=== PATIENT | female | born 1980 | race African-American/Black ===

== ENCOUNTER 2016-06-14 07:26 | Inpatient (IN) | payer OTHER ==
[~2016-06-14] VITALS: Ht 165.1 cm; Wt 99.8 kg
[~2016-06-14 07:26] MED LIST: BUTA1CAP29 PO; METH-37 PO
[2016-06-14] MEDS ORDERED: ONDANSETRON PF 4 MG/2 ML VIAL. IV ONE ×2 (07:45→08:00)
[2016-06-14] MEDS ORDERED: ACETAMINOPHEN 325 MG TABLET. PO ONE (07:45)
[2016-06-14] MEDS ORDERED: IV NORMAL SALINE 1000ML BAG 1,000 ML IV ONE ×2 (07:45→08:00)
[2016-06-14] MEDS ORDERED: ONDANSETRON PF 4 MG/2 ML VIAL. IV PRN ×2 (08:00→09:45)
--- NOTE | 2016-06-14 08:01 | PHYS DOC ---
Past Medical History Past Medical History: No Pertinent History Past Surgical History: Tubal ligation Alcohol Use: None Drug Use: None Adult General Chief Complaint Chief Complaint: VOMITING IN HPI HPI Patient is a 36 year old female who presents with nausea and vomiting in . Patient is , at 4 weeks 4 days gestation by dates (LMP 05/13). States she previously had tubal ligation underwent reversal, had positive home test, has been following with primary care physician at [facility] for serial beta hCG. Has had nausea and vomiting for the past week , this morning vomited 3 times, not able to tolerate any oral intake. Reports right lower abdominal pain since yesterday. Previously had vaginal spotting, today denies any bleeding. Today states she woke up with generalized mild bifrontal headache which is aching/throbbing, not sudden in onset, not the worst headache of her life. Denies fevers or chills, cough, hematemesis, diarrhea, dysuria or hematuria, vaginal discharge. Notes that her was diagnosed with influenza B 4 days ago. Has not yet established care with her OB but plans to see Dr. Weir on 06/27. Review of Systems Review of Systems Constitutional: Denies fever or chills Eyes: Denies change in visual acuity HENT: Denies nasal congestion or sore throat Respiratory: Denies cough or shortness of breath Cardiovascular: Denies chest pain or edema GI: Reports abdominal pain, nausea, vomiting, denies bloody stools or diarrhea : Denies dysuria or hematuria . Reports history of vaginal spotting. Musculoskeletal: Denies back pain or joint pain Integument: Denies rash or skin lesions Neurologic: Denies headache, focal weakness or sensory changes Current Medications Current Medications Current Medications Medications (Trade) Dose Ordered Sig/Pete Start Time Stop Time Status Last Admin Dose Admin Acetaminophen (Tylenol) 650 mg 1X ONCE 06/14/16 07:45 06/14/16 07:50 DC 06/14/16 08:00 650 MG Fentanyl Citrate 50 mcg 50 mcg PRN Q1HR PRN 06/14/16 09:45 06/15/16 09:44 Ondansetron HCl (Zofran) 4 mg PRN Q8HRS PRN 06/14/16 09:45 06/15/16 09:44 Sodium Chloride (Iv Sodium Chloride 0.9% 1000ml Bag) 1,000 ml @ 125 mls/hr Q8H 06/14/16 09:36 06/15/16 09:35 Allergies Allergies Allergies Coded Allergies Type Severity Reaction Last Updated Verified No Known Drug Allergies 09/01/13 No Physical Exam Physical Exam Constitutional: Obese, no acute distress, non-toxic appearance. HENT: Normocephalic, atraumatic, bilateral external ears normal, oropharynx moist, nose normal. Eyes: PERRLA, EOMI, conjunctiva normal, no discharge. Neck: supple, no stridor. No nuchal rigidity. Cardiovascular: RRR, no murmurs, no edema. Lungs & Thorax: LCTAB, no wheezing, no respiratory distress. Abdomen: Normal bowel sounds, soft, mild right lower quadrant abdominal pain is present without rebound or guarding, no masses or pulsatile masses, nondistended. : normal appearing female external genitalia, normal appearing cervix with closed os, no blood, small amount white discharge in vaginal vault, no CMT, + right adnexal tenderness which is mild, no left adnexal tenderness, no palpable masses. Skin: Warm, dry, no erythema, no rash. Back: No tenderness, no CVA tenderness. Extremities: No tenderness, no edema. Neurologic: Alert and oriented X 3, cranial nerves II through XII grossly intact , symmetric strength and sensation to upper and lower extremities, no focal deficits noted. Psychologic: Affect normal, judgement normal, mood normal. Current Patient Data Vital Signs Vital Signs Date Time Temp Pulse Resp B/P Pulse Ox O2 Delivery O2 Flow Rate FiO2 06/14/16 07:50 98.4 81 20 118/56 99 Room Air 98.4 Lab Values Laboratory Tests Test 06/14/16 06:41 06/14/16 07:33 06/14/16 07:48 06/14/16 07:50 POC Urine HCG, Qualitative Hcg positive (Negative) Urine Collection Type Unknown Urine Color Yellow Urine Clarity Clear Urine pH 5.5 Urine Specific [place] 1.025 Urine Protein Negativemg/dL (NEG-TRACE) Urine Glucose (UA) Negativemg/dL (NEG) Urine Ketones (Stick) Negativemg/dL (NEG) Urine Blood Negative (NEG) Urine Nitrite Negative (NEG) Urine Bilirubin Negative (NEG) Urine Urobilinogen Dipstick 0.2mg/dL (0.2 mg/dL) Urine Leukocyte Esterase Negative (NEG) Urine RBC Occ/HPF (0-2) Urine WBC 1-4/HPF (0-4) Urine Squamous Epithelial Cells Few/LPF Urine Bacteria Few/HPF (0-FEW) Urine Mucus Marked/LPF White Blood Count 4.3x10^3/uL (4.0-11.0) Red Blood Count 4.52x10^6/uL (3.50-5.40) Hemoglobin 13.5g/dL (12.0-15.5) Hematocrit 40.3% (36.0-47.0) Mean Corpuscular Volume 89fL (79-100) Mean Corpuscular Hemoglobin 30pg (25-35) Mean Corpuscular Hemoglobin Concent 34g/dL (31-37) Red Cell Distribution Width 14.0% (11.5-14.5) Platelet Count 230x10^3/uL (140-400) Neutrophils (%) (Auto) 49% (31-73) Lymphocytes (%) (Auto) 41% (24-48) Monocytes (%) (Auto) 7% (0-9) Eosinophils (%) (Auto) 2% (0-3) Basophils (%) (Auto) 1% (0-3) Neutrophils # (Auto) 2.1x10^3uL (1.8-7.7) Lymphocytes # (Auto) 1.8x10^3/uL (1.0-4.8) Monocytes # (Auto) 0.3x10^3/uL (0.0-1.1) Eosinophils # (Auto) 0.1x10^3/uL (0.0-0.7) Basophils # (Auto) 0.0x10^3/uL (0.0-0.2) Maternal Serum HCG Beta Subunit 271mIU/mL (0-6) H Sodium Level 143mmol/L (136-145) Potassium Level 3.9mmol/L (3.5-5.1) Chloride Level 106mmol/L (98-107) Carbon Dioxide Level 26mmol/L (21-32) Anion Gap 11 (6-14) Blood Urea Nitrogen 9mg/dL (7-20) Creatinine 0.9mg/dL (0.6-1.0) Estimated GFR (Cockcroft-Gault) 85.2 BUN/Creatinine Ratio 10 (6-20) Glucose Level 112mg/dL (70-99) H Calcium Level 9.3mg/dL (8.5-10.1) Total Bilirubin 0.8mg/dL (0.2-1.0) Aspartate Amino Transferase (AST) 14U/L (15-37) L Alanine Aminotransferase (ALT) 18U/L (14-59) Alkaline Phosphatase 51U/L (46-116) Total Protein 7.7g/dL (6.4-8.2) Albumin 3.7g/dL (3.4-5.0) Albumin/Globulin Ratio 0.9 (1.0-1.7) L Influenza Type A Antigen Negative (NEGATIVE) Influenza Type B Antigen Negative (NEGATIVE) Laboratory Tests 06/14/16 07:48 Laboratory Tests 06/14/16 07:48 EKG EKG [] Radiology/Procedures Radiology/Procedures PROCEDURE: OB <14 WKS W/TV Obstetrical ultrasound, 06/14/2016: History: Nausea, Transabdominal and transvaginal scans were obtained. The uterus measures 10.8 x 6.1 x 6.2 cm. A small nabothian cyst is present in the cervical region. The central uterine echo complex is thickened measuring approximately 2 cm in AP diameter. It is heterogeneous. It contains a small irregular shaped fluid collection measuring approximately 1.4 cm in greatest diameter. A normal intrauterine gestational sac is not seen. There is a small 1.9 cm hypoechoic area in the myometrium in the left fundal region probably representing a small fibroid. The ovaries are within normal limits in size. There is a tiny cyst in the right ovary. There is a 1.5 cm cyst in the left ovary. Blood flow is present in both ovaries. No adnexal mass is seen. There is a small amount of free fluid in the pelvis. IMPRESSION: 1. Thickening of the central uterine echo complex which contains a small amount of fluid. 2. No intrauterine or extrauterine gestational sac is seen. Correlation with hCG titers and possibly sonographic follow-up is suggested to exclude an occult ectopic . 3. Probable small uterine fibroid. 4. Small amount of free fluid in the pelvis. DICTATED and SIGNED BY: ERICH RUTHERFORD MD DATE: 06/14/16 0855[] Course & Med Decision Making Course & Med Decision Making Pertinent Labs and Imaging studies reviewed. (See chart for details) Patient presents with vomiting & abdominal pain in . Vitals stable. Adnexal pain present on exam. Gave IV fluids, antiemetics, pain medication. She felt better. HCH quite low but history concerning for ectopic . US inconclusive but with ovarian cyst & free fluid in the context of high risk for ectopic with unilateral pain, still quite concerning for ectopic . Discussed with Dr. Weir who recommends admit to OB floor for likely laparoscopy this afternoon. Vitals remain stable, patient resting comfortably & agrees with plan. She is being admitted in stable condition. [] Dragon Disclaimer Dragon Disclaimer This electronic medical record was generated, in whole or in part, using a voice recognition dictation system. Departure Departure Impression: Primary Impression: Abdominal pain affecting Additional Impressions: Nausea/vomiting in Headache Disposition: 01 HOME, SELF-CARE Condition: STABLE Referrals: BRIAN MARIE JR, MD (PCP) Problem Qualifiers LIONEL BECERRA MD Jun 14, 2016 08:00
[2016-06-14 08:03] LABS: BASO % 1 % (0-3); EOS % 2 % (0-3); HEMATOCRIT 40.3 % (36.0-47.0); HEMOGLOBIN 13.5 g/dL (12.0-15.5); LYMPH # 1.8 x10^3/uL (1.0-4.8); LYMPH % 41 % (24-48); MEAN CORPUSCULAR HEMOGLOBIN 30 pg (25-35); MEAN CORPUSCULAR HGB CONC 34 g/dL (31-37); MEAN CORPUSCULAR VOLUME 89 fL (79-100); MONO % 7 % (0-9); NEUT % 49 % (31-73); PLATELET COUNT 230 x10^3/uL (140-400); RED BLOOD COUNT 4.52 x10^6/uL (3.50-5.40); WHITE BLOOD COUNT 4.3 x10^3/uL (4.0-11.0)
[2016-06-14 08:16] LABS: BILIRUBIN,URINE NEGATIVE (NEG); GLUCOSE,URINE NEGATIVE (NEG); NITRITE,URINE NEGATIVE (NEG); PH,URINE 5.5; PROTEIN,URINE NEGATIVE (NEG-TRACE); UROBILINOGEN,URINE 0.2 mg/dL (0.2 mg/dL)
[2016-06-14 08:17] LABS: CALCIUM 9.3 mg/dL (8.5-10.1); CREATININE 0.9 mg/dL (0.6-1.0); GFR 85.2; POTASSIUM 3.9 mmol/L (3.5-5.1)
[2016-06-14 08:23] LABS: ALBUMIN 3.7 g/dL (3.4-5.0); ALBUMIN/GLOBULIN RATIO 0.9 (1.0-1.7); TOTAL BILIRUBIN 0.8 mg/dL (0.2-1.0); TOTAL PROTEIN 7.7 g/dL (6.4-8.2)
[2016-06-14 08:26] LABS: BACTERIA,URINE FEW /HPF (0-FEW); RBC,URINE OCC /HPF (0-2); SQUAMOUS EPITHELIAL CELL,UR FEW /LPF
[2016-06-14 08:28] LABS: OBC FLU VALID
--- NOTE | 2016-06-14 09:05 | RAD ---
Obstetrical ultrasound, 06/14/2016: History: Nausea, Transabdominal and transvaginal scans were obtained. The uterus measures 10.8 x 6.1 x 6.2 cm. A small nabothian cyst is present in the cervical region. The central uterine echo complex is thickened measuring approximately 2 cm in AP diameter. It is heterogeneous. It contains a small irregular shaped fluid collection measuring approximately 1.4 cm in greatest diameter. A normal intrauterine gestational sac is not seen. There is a small 1.9 cm hypoechoic area in the myometrium in the left fundal region probably representing a small fibroid. The ovaries are within normal limits in size. There is a tiny cyst in the right ovary. There is a 1.5 cm cyst in the left ovary. Blood flow is present in both ovaries. No adnexal mass is seen. There is a small amount of free fluid in the pelvis. IMPRESSION: 1. Thickening of the central uterine echo complex which contains a small amount of fluid. 2. No intrauterine or extrauterine gestational sac is seen. Correlation with hCG titers and possibly sonographic follow-up is suggested to exclude an occult ectopic . 3. Probable small uterine fibroid. 4. Small amount of free fluid in the pelvis.
[2016-06-14] MEDS ORDERED: IV NORMAL SALINE 1000ML BAG 1,000 ML IV SCH (09:36)
[2016-06-14] MEDS ORDERED: FENTANYL PF 100 MCG/2 ML VIAL. IV PRN (09:45)
[2016-06-14 10:38] VITALS: BP 133/77
[2016-06-14 13:41] VITALS: BP 107/49
[2016-06-14 13:49] VITALS: BP 107/49
--- NOTE | 2016-06-14 17:48 | PDOC1 ---
History and Physical Date of Admission Date of Admission DATE: 06/14/16 TIME: 17:39 Identification/Chief Complaint Chief Complaint abd pain Source Source: Chart review, Patient History of Present Illness History of Present Illness 36 y/o at 4 wks gestation presented to ED with c/o abd pain. She reports light vaginal spotting 2 days ago, but no bleeding today. SHe reports HCG of 290 at [facility]. Today's HCG is 270. Past Medical History Cardiovascular: No pertinent hx Pulmonary: No pertinent hx GI: No pertinent hx Heme/Onc: No pertinent hx Hepatobiliary: No pertinent hx Psych: No pertinent hx Rheumatologic: No pertinent hx Past Surgical History Past Surgical History: , Tubal Ligation, Other (Tubal reversal) Current Problem List Problem List Problems Medical Problems: (1) Abdominal pain affecting Status: Acute (2) Headache Status: Acute (3) Nausea/vomiting in Status: Acute Problems: Current Medications Current Medications Current Medications Sodium Chloride (Iv Sodium Chloride 0.9% 1000ml Bag) 1,000 ml @ 1,000 mls/hr 1X ONCE IV ; Start 06/14/16 at 07:45; Stop 06/14/16 at 08:44; Status Cancel Ondansetron HCl (Zofran) 4 mg 1X ONCE IV ; Start 06/14/16 at 07:45; Stop at 07:46; Status Cancel Acetaminophen (Tylenol) 650 mg 1X ONCE PO Last administered on 06/14/16 08:00 ; Start 06/14/16 at 07:45; Stop 06/14/16 at 07:50; Status DC Ondansetron HCl 4 mg 4 mg PRN Q6HRS PRN IV NAUSEA/VOMITING; Start 06/14/16 at 08:00; Stop 06/14/16 at 08:00; Status DC Sodium Chloride (Iv Sodium Chloride 0.9% 1000ml Bag) 1,000 ml @ 1,000 mls/hr 1X ONCE IV Last administered on 06/14/16 08:00; Start 06/14/16 at 08:00; Stop 06/14/16 at 08:59; Status DC Ondansetron HCl (Zofran) 4 mg ONCE ONCE IV Last administered on 06/14/16 08: 00; Start 06/14/16 at 08:00; Stop 06/14/16 at 08:01; Status DC Ondansetron HCl (Zofran) 4 mg PRN Q8HRS PRN IV NAUSEA/VOMITING; Start 06/14/16 at 09:45; Stop 06/15/16 at 09:44 Fentanyl Citrate 50 mcg 50 mcg PRN Q1HR PRN IV PAIN; Start 06/14/16 at 09:45; Stop 06/15/16 at 09:44 Sodium Chloride (Iv Sodium Chloride 0.9% 1000ml Bag) 1,000 ml @ 125 mls/hr Q8H IV Last administered on 06/14/16t 13:38; Start 06/14/16 at 09:36; Stop at 09:35 Acetaminophen (Tylenol) 650 mg PRN Q6HRS PRN PO PAIN; Start 06/14/16 at 17:15 Active Scripts Active Fioricet 50-300-40 Mg Capsule (Butalb/Acetaminophen/Caffeine) 1 Each Capsule 1 Each PO PRN Q4HRS PRN Robaxin (Methocarbamol) 500 Mg Tablet 500 Mg PO QID Allergies Allergies: Coded Allergies: No Known Drug Allergies (Unverified , 09/01/13) ROS General: No: Appetite, Chills, Fatigue, Malaise, Night Sweats, Other PSYCHOLOGICAL ROS: YES: Anxiety, No: Behavioral Disorder, Concentration difficultie, Decreased libido, Depression, Disorientation, Hallucinations, Hostility, Irritablity, Memory difficulties, Mood Swings, Obsessive thoughts, Other, Physical abuse, Sexual abuse, Sleep disturbances, Suicidal ideation Eyes: No Blurry vision, No Decreased vision, No Double vision, No Dry eyes, No Excessive tearing, No Eye Pain, No Itchy Eyes, No Loss of vision, No Other, No Photophobia, No Scotomata, No Uses contacts, No Uses glasses HEENT: No: Epistaxis, Heacaches, Hearing change, Nasal congestion, Nasal discharge, Oral lesions, Other, Sinus pain, Sneezing, Snoring, Sore Throat, Tinnitus, Vertigo, Visual Changes, Vocal changes ALLERGY AND IMMUNOLOGY: No: Hives, Insect Bite Sensitivity, Itchy/Watery Eyes, Nasal Congestion, Other, Post Nasal Drip, Seasonal Allergies Hematological and Lymphatic: No: Bleeding Problems, Blood Clots, Blood Transfusions, Brusing, Night Sweats, Other, Pallor, Swollen Lymph Nodes ENDOCRINE: No: Breast Changes, Galactorrhea, Hair Pattern Changes, Hot Flashes , Malaise/lethargy, Mood Swings, Other, Palpitations, Polydipsia/polyuria, Skin Changes, Temperature Intolerance, Unexpected Weight Changes Breast: No New/Changing Breast Lumps, No Nipple changes, No Nipple discharge, No Other Respiratory: No: Cough, Hemoptysis, Orthopnea, Other, Pleuritic Pain, SOB with excertion, Shortness of breath, Sputum Changes, Stridor, Tachypnea, Wheezing Cardiovascular: No Chest Pain, No Edema, No Lt Headedness, No Orthopnea, No Other, No Palpitations, No Paroxysmal Noc. Dyspnea Gastrointestinal: Yes Abdominal Pain (initially abd pain, but pain has resolved since admission.) Genitourinary: No , No , No , No , No , No , No , No Discharge, No Dysuria, No Flank Pain, No Frequency, No Hematuria, No Incontinence, No Other, No Pain, No Retention, No Urgency Musculoskeletal: No Gait Disturbance, No Joint Pain, No Joint Stiffness, No Joint Swelling, No Muscle Pain, No Muscular Weakness, No Other, No Pain In:, No Swelling In: Neurological: No Behavorial Changes, No Bowel/Bladder ControlChng, No Confusion , No Dizziness, No Gait Disturbance, No Headaches, No Impaired Coord/balance, No Memory Loss, No Numbness/Tingling, No Other, No Seizures, No Speech Problems , No Tremors, No Visual Changes, No Weakness Physical Exam General: Alert, Oriented X3, Cooperative HEENT: Atraumatic Lungs: Clear to auscultation Heart: S1S2 Cardiovascular: S1 Breasts: Normal Abdomen: Normal bowel sounds, Soft, No tenderness, No masses Extremities: No edema Vitals Vitals Vital Signs Date Time Temp Pulse Resp B/P Pulse Ox O2 Delivery O2 Flow Rate FiO2 06/14/16 13:49 98.3 78 20 107/49 100 Room Air 98.3 Labs Labs Laboratory Tests Test 06/14/16 06:41 06/14/16 07:33 06/14/16 07:48 06/14/16 07:50 Bedside Urine HCG, Qualitative Hcg positive (Negative) Urine Collection Type Unknown Urine Color Yellow Urine Clarity Clear Urine pH 5.5 Urine Specific [place] 1.025 Urine Protein Negativemg/dL (NEG-TRACE) Urine Glucose (UA) Negativemg/dL (NEG) Urine Ketones (Stick) Negativemg/dL (NEG) Urine Blood Negative (NEG) Urine Nitrite Negative (NEG) Urine Bilirubin Negative (NEG) Urine Urobilinogen Dipstick 0.2mg/dL (0.2 mg/dL) Urine Leukocyte Esterase Negative (NEG) Urine RBC Occ/HPF (0-2) Urine WBC 1-4/HPF (0-4) Urine Squamous Epithelial Cells Few/LPF Urine Bacteria Few/HPF (0-FEW) Urine Mucus Marked/LPF White Blood Count 4.3x10^3/uL (4.0-11.0) Red Blood Count 4.52x10^6/uL (3.50-5.40) Hemoglobin 13.5g/dL (12.0-15.5) Hematocrit 40.3% (36.0-47.0) Mean Corpuscular Volume 89fL (79-100) Mean Corpuscular Hemoglobin 30pg (25-35) Mean Corpuscular Hemoglobin Concent 34g/dL (31-37) Red Cell Distribution Width 14.0% (11.5-14.5) Platelet Count 230x10^3/uL (140-400) Neutrophils (%) (Auto) 49% (31-73) Lymphocytes (%) (Auto) 41% (24-48) Monocytes (%) (Auto) 7% (0-9) Eosinophils (%) (Auto) 2% (0-3) Basophils (%) (Auto) 1% (0-3) Neutrophils # (Auto) 2.1x10^3uL (1.8-7.7) Lymphocytes # (Auto) 1.8x10^3/uL (1.0-4.8) Monocytes # (Auto) 0.3x10^3/uL (0.0-1.1) Eosinophils # (Auto) 0.1x10^3/uL (0.0-0.7) Basophils # (Auto) 0.0x10^3/uL (0.0-0.2) Maternal Serum HCG Beta Subunit 271mIU/mL (0-6) Sodium Level 143mmol/L (136-145) Potassium Level 3.9mmol/L (3.5-5.1) Chloride Level 106mmol/L (98-107) Carbon Dioxide Level 26mmol/L (21-32) Anion Gap 11 (6-14) Blood Urea Nitrogen 9mg/dL (7-20) Creatinine 0.9mg/dL (0.6-1.0) Estimated GFR (Cockcroft-Gault) 85.2 BUN/Creatinine Ratio 10 (6-20) Glucose Level 112mg/dL (70-99) Calcium Level 9.3mg/dL (8.5-10.1) Total Bilirubin 0.8mg/dL (0.2-1.0) Aspartate Amino Transf (AST/SGOT) 14U/L (15-37) Alanine Aminotransferase (ALT/SGPT) 18U/L (14-59) Alkaline Phosphatase 51U/L (46-116) Total Protein 7.7g/dL (6.4-8.2) Albumin 3.7g/dL (3.4-5.0) Albumin/Globulin Ratio 0.9 (1.0-1.7) Influenza Type A Antigen Negative (NEGATIVE) Influenza Type B Antigen Negative (NEGATIVE) Laboratory Tests Test 06/14/16 06:41 06/14/16 07:33 06/14/16 07:48 06/14/16 07:50 Bedside Urine HCG, Qualitative Hcg positive (Negative) Urine Collection Type Unknown Urine Color Yellow Urine Clarity Clear Urine pH 5.5 Urine Specific [place] 1.025 Urine Protein Negativemg/dL (NEG-TRACE) Urine Glucose (UA) Negativemg/dL (NEG) Urine Ketones (Stick) Negativemg/dL (NEG) Urine Blood Negative (NEG) Urine Nitrite Negative (NEG) Urine Bilirubin Negative (NEG) Urine Urobilinogen Dipstick 0.2mg/dL (0.2 mg/dL) Urine Leukocyte Esterase Negative (NEG) Urine RBC Occ/HPF (0-2) Urine WBC 1-4/HPF (0-4) Urine Squamous Epithelial Cells Few/LPF Urine Bacteria Few/HPF (0-FEW) Urine Mucus Marked/LPF White Blood Count 4.3x10^3/uL (4.0-11.0) Red Blood Count 4.52x10^6/uL (3.50-5.40) Hemoglobin 13.5g/dL (12.0-15.5) Hematocrit 40.3% (36.0-47.0) Mean Corpuscular Volume 89fL (79-100) Mean Corpuscular Hemoglobin 30pg (25-35) Mean Corpuscular Hemoglobin Concent 34g/dL (31-37) Red Cell Distribution Width 14.0% (11.5-14.5) Platelet Count 230x10^3/uL (140-400) Neutrophils (%) (Auto) 49% (31-73) Lymphocytes (%) (Auto) 41% (24-48) Monocytes (%) (Auto) 7% (0-9) Eosinophils (%) (Auto) 2% (0-3) Basophils (%) (Auto) 1% (0-3) Neutrophils # (Auto) 2.1x10^3uL (1.8-7.7) Lymphocytes # (Auto) 1.8x10^3/uL (1.0-4.8) Monocytes # (Auto) 0.3x10^3/uL (0.0-1.1) Eosinophils # (Auto) 0.1x10^3/uL (0.0-0.7) Basophils # (Auto) 0.0x10^3/uL (0.0-0.2) Maternal Serum HCG Beta Subunit 271mIU/mL (0-6) Sodium Level 143mmol/L (136-145) Potassium Level 3.9mmol/L (3.5-5.1) Chloride Level 106mmol/L (98-107) Carbon Dioxide Level 26mmol/L (21-32) Anion Gap 11 (6-14) Blood Urea Nitrogen 9mg/dL (7-20) Creatinine 0.9mg/dL (0.6-1.0) Estimated GFR (Cockcroft-Gault) 85.2 BUN/Creatinine Ratio 10 (6-20) Glucose Level 112mg/dL (70-99) Calcium Level 9.3mg/dL (8.5-10.1) Total Bilirubin 0.8mg/dL (0.2-1.0) Aspartate Amino Transf (AST/SGOT) 14U/L (15-37) Alanine Aminotransferase (ALT/SGPT) 18U/L (14-59) Alkaline Phosphatase 51U/L (46-116) Total Protein 7.7g/dL (6.4-8.2) Albumin 3.7g/dL (3.4-5.0) Albumin/Globulin Ratio 0.9 (1.0-1.7) Influenza Type A Antigen Negative (NEGATIVE) Influenza Type B Antigen Negative (NEGATIVE) VTE Prophylaxis Ordered VTE Prophylaxis Devices: No VTE Pharmacological Prophylaxi: No Assessment/Plan Assessment/Plan A: Early IUP P: Repeat HCG in am. Obtain progesterone level. IV hydration and pain management. ANTON ANN Jr, MD Jun 14, 2016 17:48
[2016-06-14] MEDS: ACETAMINOPHEN 325 MG TABLET. PO PRN (17:52)
[2016-06-14 18:25] VITALS: BP 119/74
[2016-06-14 23:00] VITALS: BP 91/46
[2016-06-15] MEDS: ACETAMINOPHEN 325 MG TABLET. PO PRN (03:53)
[2016-06-15 05:53] VITALS: BP 98/52
[2016-06-15 10:20] VITALS: BP 101/56
--- NOTE | 2016-06-15 12:53 | PDOC ---
OB Progress Note Date of Service 06/15/16 Time of Evaluation 1250 Problem List Problems Medical Problems: (1) Abdominal pain affecting Status: Acute (2) Headache Status: Acute (3) Nausea/vomiting in Status: Acute Notes Pt. feeling well. Pain resolved. HCG level now 177. Counseled on SAB and expectations. Lab Laboratory Tests Test 06/14/16 06:41 06/14/16 07:33 06/14/16 07:48 06/14/16 07:50 Bedside Urine HCG, Qualitative Hcg positive (Negative) Urine Collection Type Unknown Urine Color Yellow Urine Clarity Clear Urine pH 5.5 Urine Specific [place] 1.025 Urine Protein Negativemg/dL (NEG-TRACE) Urine Glucose (UA) Negativemg/dL (NEG) Urine Ketones (Stick) Negativemg/dL (NEG) Urine Blood Negative (NEG) Urine Nitrite Negative (NEG) Urine Bilirubin Negative (NEG) Urine Urobilinogen Dipstick 0.2mg/dL (0.2 mg/dL) Urine Leukocyte Esterase Negative (NEG) Urine RBC Occ/HPF (0-2) Urine WBC 1-4/HPF (0-4) Urine Squamous Epithelial Cells Few/LPF Urine Bacteria Few/HPF (0-FEW) Urine Mucus Marked/LPF White Blood Count 4.3x10^3/uL (4.0-11.0) Red Blood Count 4.52x10^6/uL (3.50-5.40) Hemoglobin 13.5g/dL (12.0-15.5) Hematocrit 40.3% (36.0-47.0) Mean Corpuscular Volume 89fL (79-100) Mean Corpuscular Hemoglobin 30pg (25-35) Mean Corpuscular Hemoglobin Concent 34g/dL (31-37) Red Cell Distribution Width 14.0% (11.5-14.5) Platelet Count 230x10^3/uL (140-400) Neutrophils (%) (Auto) 49% (31-73) Lymphocytes (%) (Auto) 41% (24-48) Monocytes (%) (Auto) 7% (0-9) Eosinophils (%) (Auto) 2% (0-3) Basophils (%) (Auto) 1% (0-3) Neutrophils # (Auto) 2.1x10^3uL (1.8-7.7) Lymphocytes # (Auto) 1.8x10^3/uL (1.0-4.8) Monocytes # (Auto) 0.3x10^3/uL (0.0-1.1) Eosinophils # (Auto) 0.1x10^3/uL (0.0-0.7) Basophils # (Auto) 0.0x10^3/uL (0.0-0.2) Maternal Serum HCG Beta Subunit 271mIU/mL (0-6) Sodium Level 143mmol/L (136-145) Potassium Level 3.9mmol/L (3.5-5.1) Chloride Level 106mmol/L (98-107) Carbon Dioxide Level 26mmol/L (21-32) Anion Gap 11 (6-14) Blood Urea Nitrogen 9mg/dL (7-20) Creatinine 0.9mg/dL (0.6-1.0) Estimated GFR (Cockcroft-Gault) 85.2 BUN/Creatinine Ratio 10 (6-20) Glucose Level 112mg/dL (70-99) Calcium Level 9.3mg/dL (8.5-10.1) Total Bilirubin 0.8mg/dL (0.2-1.0) Aspartate Amino Transf (AST/SGOT) 14U/L (15-37) Alanine Aminotransferase (ALT/SGPT) 18U/L (14-59) Alkaline Phosphatase 51U/L (46-116) Total Protein 7.7g/dL (6.4-8.2) Albumin 3.7g/dL (3.4-5.0) Albumin/Globulin Ratio 0.9 (1.0-1.7) Influenza Type A Antigen Negative (NEGATIVE) Influenza Type B Antigen Negative (NEGATIVE) Test 06/15/16 06:35 Maternal Serum HCG Beta Subunit 177mIU/mL (0-6) Laboratory Tests Test 06/15/16 06:35 Maternal Serum HCG Beta Subunit 177mIU/mL (0-6) Medications Current Medications Sodium Chloride (Iv Sodium Chloride 0.9% 1000ml Bag) 1,000 ml @ 1,000 mls/hr 1X ONCE IV ; Start 06/14/16 at 07:45; Stop 06/14/16 at 08:44; Status Cancel Ondansetron HCl (Zofran) 4 mg 1X ONCE IV ; Start 06/14/16 at 07:45; Stop at 07:46; Status Cancel Acetaminophen (Tylenol) 650 mg 1X ONCE PO Last administered on 06/14/16 08:00 ; Start 06/14/16 at 07:45; Stop 06/14/16 at 07:50; Status DC Ondansetron HCl 4 mg 4 mg PRN Q6HRS PRN IV NAUSEA/VOMITING; Start 06/14/16 at 08:00; Stop 06/14/16 at 08:00; Status DC Sodium Chloride (Iv Sodium Chloride 0.9% 1000ml Bag) 1,000 ml @ 1,000 mls/hr 1X ONCE IV Last administered on 06/14/16 08:00; Start 06/14/16 at 08:00; Stop 06/14/16 at 08:59; Status DC Ondansetron HCl (Zofran) 4 mg ONCE ONCE IV Last administered on 06/14/16 08: 00; Start 06/14/16 at 08:00; Stop 06/14/16 at 08:01; Status DC Ondansetron HCl (Zofran) 4 mg PRN Q8HRS PRN IV NAUSEA/VOMITING Last administered on 06/15/16 03:54; Start 06/14/16 at 09:45; Stop 06/15/16 at 09:44 ; Status DC Fentanyl Citrate 50 mcg 50 mcg PRN Q1HR PRN IV PAIN; Start 06/14/16 at 09:45; Stop 06/15/16 at 09:44; Status DC Sodium Chloride (Iv Sodium Chloride 0.9% 1000ml Bag) 1,000 ml @ 125 mls/hr Q8H IV Last administered on 06/14/16 13:38; Start 06/14/16 at 09:36; Stop at 18:18; Status DC Acetaminophen (Tylenol) 650 mg PRN Q6HRS PRN PO PAIN Last administered on 03:53; Start 06/14/16 at 17:15 Active Scripts Active Fioricet 50-300-40 Mg Capsule (Butalb/Acetaminophen/Caffeine) 1 Each Capsule 1 Each PO PRN Q4HRS PRN Robaxin (Methocarbamol) 500 Mg Tablet 500 Mg PO QID Exam Abd: soft, non tender Assessment Incomplete AB Plan of Care: See new orders (D/c home. F/u in 2 weeks.) ANTON ANN Jr, MD Jun 15, 2016 12:53
--- NOTE | 2016-06-15 12:54 | DISCH ---
DISCHARGE INSTRUCTIONS Condition on Discharge Condition on Discharge: Stable Activity After Discharge Activity Instructions for Disc: Activity as tolerated Lifting Instructions after Dis: No heavy lifting Driving Instructions after Dis: Do not drive today Diet after Discharge Diet after Discharge: Regular Contacting the DRErnestine after DC Call your doctor for: Concerns you may have Follow-Up Follow up with: Dr. Lora in 2 weeks. ANTON LORA Jr, MD Jun 15, 2016 12:54
[2016-06-15 14:12] VITALS: BP 106/54
== END 2016-06-15 14:20 | disposition home or self-care (01) | DRG 779 ==
LOC: ER 07:26 → 3 NORTH 09:17
PROVIDERS: ADMIT Obstetrics & Gynecology; ATTEND Obstetrics & Gynecology
DX: O03.4 Incomplete spontaneous abortion without complication (principal); O21.9 Vomiting of pregnancy, unspecified; Z98.51 Tubal ligation status; O09.521 Supervision of elderly multigravida, first trimester; Z98.891 History of uterine scar from previous surgery
CPT/HCPCS: 36415; 76801; 76817; 80053; 81001; 81025; 84144; 84702; 85027; 86850; 86900; 86901; 87491; 87591; 87804; 96361; 96374; 96375; J2405; J7030; Q0111; 99285-25

== ENCOUNTER → 2016-10-10 | Outpatient (CLI) | payer OTHER ==
[2016-10-11 08:01] LABS: NEG OBC SER NEG; POS OBC SER POS
== END | disposition home or self-care (01) ==
LOC: LAB 07:54
PROVIDERS: ATTEND Obstetrics & Gynecology
DX: N91.2 Amenorrhea, unspecified (principal)
CPT/HCPCS: 36415; 84703

== ENCOUNTER → 2016-10-12 | Outpatient (CLI) | payer OTHER ==
--- NOTE | 2016-10-12 10:52 | KCIC ---
Hysterosalpingogram 10/12/2016 CLINICAL HISTORY: Infertility. Posttubal ligation reversal. TECHNIQUE: After the risks and benefits of the procedure were explained to the patient, written informed consent was obtained. The patient was placed supine on the fluoroscopy table and a speculum was placed into the vagina. The external cervical os was identified and prepped with a Betadine solution. A 5 Chinese HSG catheter was advanced through the cervix into the endometrial canal of the uterus. The balloon was inflated. 15 cc of Omnipaque 180 were injected through the catheter distending the endometrial canal and opacifying the fallopian tubes. Following this the balloon was deflated and the catheter removed as was the speculum. The patient tolerated the procedure well there were no immediate complications. The total fluoroscopic time for the study was 1 minute 21 seconds. 6 digital spot radiographs were obtained. FINDINGS: The endometrial canal is within normal limits in configuration. A filling defect which represents a air bubble is seen throughout the endometrial canal on this study. Opacification of both fallopian tubes with contrast is seen. The distal end of the left fallopian tube is mildly dilated. Free spillage of contrast in the peritoneal cavity is seen bilaterally. IMPRESSION: Both fallopian tubes are patent. Electronically signed by: Sidney Solano MD (10/12/2016 10:48 AM) [email or web address]
== END | disposition home or self-care (01) ==
LOC: KCIC 08:01
PROVIDERS: ATTEND Obstetrics & Gynecology
DX: N97.9 Female infertility, unspecified (principal)
CPT/HCPCS: 74400